=== PATIENT | male | born 1970 | race Caucasian/White ===

== ENCOUNTER → 2017-05-05 | Outpatient (CLI) | payer OTHER ==
--- NOTE | 2017-05-05 12:26 | DIAGNOSTIC IMAGING REPORT ---
PET/CT SKULL-THIGH HISTORY: Renal carcinoma KIDNEY CANCER TECHNIQUE: PET/CT was performed from the base of the skull through the pelvis following the intravenous administration of 15.4 mCi of [id number]. Non-contrast CT imaging was performed over the same range without breath-hold for attenuation correction of PET images and anatomic correlation, but not for primary interpretation as it is not of standard diagnostic quality. CT DOSE: COMPARISON: None FINDINGS: HEAD AND NECK: There is no FDG-avid disease or significant lymphadenopathy in the imaged portions of the head and the neck. CHEST: There is no FDG-avid disease in the chest. There is no axillary, mediastinal, or hilar lymphadenopathy. There is no pleural or pericardial effusion. There is no air-space disease or suspicious lung nodule. ABDOMEN/PELVIS: Posterior to 0.5 cm exophytic lesion projecting from the lower pole left kidney. This shows no significant increase in SUV activity of maximum measurement of 1.4. Metabolic activity characteristics of the abdomen and pelvis are otherwise unremarkable. There is physiologic activity within the urinary tracts and bowel. Bladder is midline. Osseous structures show no abnormal metabolic foci. MUSCULOSKELETAL: There is no FDG-avid or destructive bone lesion. IMPRESSION: 1. 2.5 cm posterior exophytic lesion lower pole left kidney. 2. This shows no significant increase in metabolic activity although this may be consistent with the patient's history of low-grade neoplasm. 3. PET scan is otherwise negative. The above report was generated using voice recognition software. It may contain grammatical, syntax or spelling errors. Electronically signed by: Chepe Chung M.D. 05/05/2017 12:25 PM Dictated Date/Time: 05/05/2017 12:17 PM
== END | disposition home or self-care (01) ==
LOC: C.PET 07:45
PROVIDERS: ATTEND Internal Medicine Hematology & Oncology
DX: C65.2 Malignant neoplasm of left renal pelvis (principal); N28.89 Other specified disorders of kidney and ureter